=== PATIENT | female | born 1945 | race Caucasian/White ===

== ENCOUNTER 2017-12-21 00:09 | Emergency (ER) | payer BC ==
[~2017-12-21] VITALS: Ht 172.7 cm; Wt 76.3 kg
[~2017-12-21 00:09] MED LIST: ALBU18002 INH; BIO X PO; BONE SUPPORT PO; DOCO1CAP10 PO; ESTVR2 VAGRING; FLUT1INH INH; MELA1TAB3 PO; MONT1TAB3 PO; MULT-831 PO; OXGN; PROB1TAB16 PO; [UNRECOGNIZED DRUG - CODE] EXT; [UNRECOGNIZED DRUG - CODE] TD; [UNRECOGNIZED DRUG - OTHER] PO; [UNRECOGNIZED DRUG - OTHER] PO; [UNRECOGNIZED DRUG - OTHER] PO; [UNRECOGNIZED DRUG - OTHER] PO
[2017-12-21 00:13] VITALS: TEMP 36.9; Ht 172.7 cm; Wt 76.3 kg
[2017-12-21 01:09] LABS: BASO % 0.5 %; BASO ABS # 0.03 K/uL (0-0.2); EOS % 1.7 %; EOS ABS # 0.11 K/uL (0-0.5); HEMATOCRIT 39.2 % (37-47); HEMOGLOBIN 13.7 g/dL (12.0-16.0); IG# 0.04 K/uL (0.00-0.02); LYMPH % 14.7 %; LYMPH ABS # 0.93 K/uL (1.2-3.4); MEAN CELL VOLUME 95.1 fL (80-100); MEAN CORPUSCULAR HEMOGLOBIN 33.3 pg (25-34); MEAN CORPUSCULAR HGB CONC 34.9 g/dl (32-36); MONO % 10.3 %; MONO ABS # 0.65 K/uL (0.11-0.59); NEUT % 72.2 %; NEUT ABS # 4.55 K/uL (1.4-6.5); PLATELET COUNT 257 K/uL (130-400); WHITE BLOOD COUNT 6.31 K/uL (4.8-10.8)
[2017-12-21 01:20] LABS: INR 0.9 (0.9-1.1); PTT PATIENT 24.7 SECONDS (21.0-31.0)
[2017-12-21 01:27] LABS: CALCIUM 9.3 mg/dl (8.5-10.1); CREATININE 0.75 mg/dl (0.60-1.20); POTASSIUM 4.1 mmol/L (3.5-5.1)
[2017-12-21] MEDS ORDERED: CEPH500C PO (02:14)
[2017-12-21] MEDS ORDERED: CEPHALEXIN MONOHYDRATE 250 MG CAP PO ONE (02:15)
--- NOTE | 2017-12-21 02:15 | EMERGENCY ROOM VISIT NOTE ---
History Report prepared by [place]: Manjinder Blue Under the Supervision of: Dr. Tom Howell D.O. First contact with patient: 00:35 Chief Complaint: LEG PAIN,LEG INJURY Stated Complaint: LARGE SUDDEN SOREPATCH AND SWELLING ON THIGH History of Present Illness The patient is a 72 year old female who presents to the Emergency Room with complaints of a sudden right leg pain that began prior to arrival. She states that the area on her right thigh is sore and red. She states that she recently had the flu and is recovering from it. Source of History: patient Onset: [employer] Position: leg (right) Quality: ache Timing: constant Note: Patient reports that she recently had the flu. Review of Systems See HPI for pertinent positives & negatives. A total of 10 systems reviewed and were otherwise negative. Past Medical & Surgical Medical Problems: (1) Asthma, moderate persistent (2) Follicular lymphoma grade II (3) GERD (gastroesophageal reflux disease) (4) Unspecified asthma Surgical Problems: (1) H/O breast biopsy (2) H/O colonoscopy (3) H/O lymph node excision (4) History of dacryocystorhinostomy (5) S/p bronchial thermoplasty (6) S/P cholecystectomy (7) S/p eye procedure (8) S/P tonsillectomy and adenoidectomy (9) S/P tubal ligation Family History Cancer Cardiac disorder FATHER Diabetes mellitus FATHER GI disorders Social History Smoking Status: Never Smoker Marital Status: Housing Status: unknown Occupation Status: employed Current/Historical Medications Scheduled Cephalexin Monohydrate (Keflex), 500 MG PO QID Docosahexaenoic Acid (Dha), 500 TAB PO QAM Estradiol (Estring), 1 DOSE VAGRING DIRECTED Estradiol & Norethindrone Acet (Combipatch), 1 PATCH TD WEEKLY Fluticasone Furoate-Vilanterol (Breo Ellipta), 1 PUFF INH HS Home O2 Therapy (Oxygen), 2 LITERS NA HS Melatonin-Pyridoxine (Melatonin), 1 TAB PO HS Montelukast Sodium (Singulair), 10 MG PO HS Multiple Vitamins W/ Minerals (Icaps Lutein & Zeaxanthin), 1 TAB PO QAM Probiotic Product (Probiotic), 1 TAB PO QAM Testosterone Propionate (First-Testosterone), 1 APPLN EXT UD [Bio X 4], 1 TAB PO HS [Bone Support], 1 TAB PO HS [Eye Plex], 1 TAB PO HS [Ultimate Bone ], 1 TAB PO QAM [Ultra Thistle], 1 TAB PO QAM [Vision Ess Gold], 1 TAB PO HS Scheduled PRN Albuterol Sulfate (Proair Respiclick), 1 PUFF INH Q4H PRN for SOB/Wheezing Allergies Coded Allergies: Typhoid Vaccine-Strain Ty21a (Unverified Allergy, Unknown, PT UNSURE OF REACTION, 09/08/16) Uncoded Allergies: CATS, DUST (Allergy, Unknown, DOES NOT KNOW, TAKES ALLERGY SHOTS, 12/26/15) Physical Exam Vital Signs Date Time Temp Pulse Resp B/P (MAP) Pulse Ox O2 Delivery O2 Flow Rate FiO2 12/21/17 00:13 36.9 88 16 179/87 97 Room Air Physical Exam CONSTITUTIONAL/VITAL SIGNS: Reviewed / noted above. GENERAL: Non-toxic in appearance. INTEGUMENTARY: Warm, dry, and [place]. HEAD: Normocephalic. EYES: without scleral icterus or trauma. ENT/OROPHARYNX: clear and moist. LYMPHADENOPATHY/NECK: Is supple without lymphadenopathy or meningismus. RESPIRATORY: Lungs clear and equal. CARDIOVASCULAR: Regular rate and rhythm. GI/ABDOMEN: Soft and nontender. No organomegaly or pulsatile mass. No rebound or guarding. Normal bowel sounds. EXTREMITIES: Warm and well perfused. Erythema to medial aspect of right thigh measuring about 3 inches in diameter. BACK: No CVA tenderness. NEUROLOGICAL: Intact without focal deficits. PSYCHIATRIC: normal affect. MUSCULOSKELETAL: Normally developed with good muscle tone. Medical Decision & Procedures ER Provider Diagnostic Interpretation: Radiology results as stated below per my review and radiologist interpretation: US VENOUS RIGHT LOWER EXTREMITY No evidence of deep vein thrombosis. Prominent lymph nodes noted within the groin which are nonspecific. Heterogenous echogenicities within the confluence of the greater status vein and common femoral vein. Findings are nonspecific. Correlate with prior surgery. Radiologist: Paolo Redd MD. Study read at 01:48 and initial results transmitted at 01:57. Laboratory Results 12/21/17 01:00 Red Blood Count 4.12, Mean Corpuscular Volume 95.1, Mean Corpuscular Hemoglobin 33.3, Mean Corpuscular Hemoglobin Concent 34.9, Mean Platelet Volume 11.0, Neutrophils (%) (Auto) 72.2, Lymphocytes (%) (Auto) 14.7, Monocytes (%) (Auto) 10.3, Eosinophils (%) (Auto) 1.7, Basophils (%) (Auto) 0.5, Neutrophils # (Auto ) 4.55, Lymphocytes # (Auto) 0.93, Monocytes # (Auto) 0.65, Eosinophils # (Auto ) 0.11, Basophils # (Auto) 0.03 12/21/17 01:00 Test 12/21/17 01:00 White Blood Count 6.31 K/uL (4.8-10.8) Red Blood Count 4.12 M/uL (4.2-5.4) Hemoglobin 13.7 g/dL (12.0-16.0) Hematocrit 39.2 % (37-47) Mean Corpuscular Volume 95.1 fL (80-100) Mean Corpuscular Hemoglobin 33.3 pg (25-34) Mean Corpuscular Hemoglobin Concent 34.9 g/dl (32-36) Platelet Count 257 K/uL (130-400) Mean Platelet Volume 11.0 fL (7.4-10.4) Neutrophils (%) (Auto) 72.2 % Lymphocytes (%) (Auto) 14.7 % Monocytes (%) (Auto) 10.3 % Eosinophils (%) (Auto) 1.7 % Basophils (%) (Auto) 0.5 % Neutrophils # (Auto) 4.55 K/uL (1.4-6.5) Lymphocytes # (Auto) 0.93 K/uL (1.2-3.4) Monocytes # (Auto) 0.65 K/uL (0.11-0.59) Eosinophils # (Auto) 0.11 K/uL (0-0.5) Basophils # (Auto) 0.03 K/uL (0-0.2) RDW Standard Deviation 49.0 fL (36.4-46.3) RDW Coefficient of Variation 14.0 % (11.5-14.5) Immature Granulocyte % (Auto) 0.6 % Immature Granulocyte # (Auto) 0.04 K/uL (0.00-0.02) Prothrombin Time 9.4 SECONDS (9.0-12.0) Prothromb Time International Ratio 0.9 (0.9-1.1) Activated Partial Thromboplast Time 24.7 SECONDS (21.0-31.0) Partial Thromboplastin Ratio 1.0 Anion Gap 7.0 mmol/L (3-11) Est Creatinine Clear Calc Drug Dose 68.4 ml/min Estimated GFR () 92.3 Estimated GFR (Non- 79.6 BUN/Creatinine Ratio 14.9 (10-20) Calcium Level 9.3 mg/dl (8.5-10.1) Laboratory results as stated above per my review. ED Course 0035: Previous medical records were reviewed. The patient was evaluated in room A12. A complete history and physical examination was performed. 0205: I spoke with the patient and updated the patient on her US findings. 0210: Cephalex 500 mg PO. 0215: On reevaluation, the patient is doing well. I discussed the results and findings with the patient. She verbalized agreement of the treatment plan. She was discharged home. Medical Decision The patient's history was concerning for swelling and redness of the skin. Differential diagnosis: Etiologies such as cellulitis, abscess, MRSA infection, DVT, necrotizing fasciitis, dermatitis, drug eruption, as well as others were entertained.. This is a 72-year-old female who presents to the ED with a chief complaint of redness and discomfort in the right inner thigh. The patient states that she noticed it tonight. She denies any shortness of breath or chest pains. Denies any discomfort distal to this zone. Exam reveals erythema in the right medial thigh. The patient does have a history of lymphoma and had lymph nodes taken from her right groin. Blood work was unremarkable. She is not anemic. An ultrasound of the area did not show DVT. There were some heterogeneous echogenicity use within the confluence of the greater saphenous vein and common femoral vein. Findings are felt to be nonspecific and correlate with prior surgery. The patient has had prior surgery in the groin. After talking with the patient, she was told to use warm compresses to the area. She will take ibuprofen for discomfort and she was also placed on Keflex for the possibility of cellulitis. She is felt to be stable for discharge. Did recommend follow- up with PCP this week and repeat ultrasound to confirm no DVT. This can be ordered by the PCP. Medication Reconcilliation Current Medication List: was personally reviewed by me Blood Pressure Screening Patient's blood pressure: Elevated blood pressure Blood pressure disposition: Elevated BP felt to be situational Impression Primary Impression: Cellulitis of right thigh Scribe Attestation The scribe's documentation has been prepared under my direction and personally reviewed by me in its entirety. I confirm that the note above accurately reflects all work, treatment, procedures, and medical decision making performed by me. Departure Information Dispostion Home / Self-Care Prescriptions Cephalexin Monohydrate (Keflex) 500 Mg Cap 500 MG PO QID, #28 CAP Prov: Tom Howell D.O. 12/21/17 Referrals Delia Field M.D. (PCP) Patient Instructions My [facility] Additional Instructions Keflex as prescribed. Warm compresses to the area involved. Take ibuprofen 600 mg every 6 hours. Follow-up for recheck with the PCP later this week. Repeat ultrasound is recommended within 7 days.
[2017-12-21 02:26] VITALS: BP 146/77; PULSE 76; O2SAT 97
--- NOTE | 2017-12-21 06:28 | DIAGNOSTIC IMAGING REPORT ---
R VENOUS DOPP LOWER EXT UNILAT CLINICAL HISTORY: EVALUATE FOR DVT pain. Edema. TECHNIQUE: Venous Doppler COMPARISON STUDY: None FINDINGS: No evidence for deep venous thrombosis. Mild venous scarring within the confluence of the greater saphenous and common femoral veins. This potentially is chronic. Several lymph nodes in the right inguinal region measuring up to 2.4 x 1.0 cm. Given the patient's history of lymphoma this may be a concern. IMPRESSION: 1. Study is negative for deep venous thrombosis. 2. Right inguinal adenopathy. The above report was generated using voice recognition software. It may contain grammatical, syntax or spelling errors. Electronically signed by: Jethro Krause M.D. 12/21/2017 6:27 AM Dictated Date/Time: 12/21/2017 6:24 AM
== END 2017-12-21 02:29 | disposition home or self-care (01) ==
LOC: C.EDB 00:10 → C.EDA 02:29
DX: L03.115 Cellulitis of right lower limb (principal); J45.40 Moderate persistent asthma, uncomplicated; Z85.72 Personal history of non-Hodgkin lymphomas; Z88.7 Allergy status to serum and vaccine; Z91.048 Other nonmedicinal substance allergy status; Z80.9 Family history of malignant neoplasm, unspecified; Z83.3 Family history of diabetes mellitus